=== PATIENT | female | born 1940 | race Caucasian/White ===

== ENCOUNTER 2017-06-15 17:01 | Inpatient (IN) | payer MEDICARE, OTHER ==
[~2017-06-15] VITALS: Ht 156.2 cm; Wt 84.8 kg
--- NOTE | 2017-06-15 19:00 | NUR ---
REPORT RECEIVED AND CARE OF PT ASSUMED. PT LYING IN SUPINE POSITION PROPPED ONTO LEFT SIDE WITH PILLOWS PER TURN SCHEDULE. IV IN LEFT FA PATENT WITH NS INFUSING AT KVO. FERRERA CATHETER PLACED BY DAY SHIFT CATEGORY CONSULTANT. WILL MONITOR CLOSLEY FOR NEEDS.
[2017-06-15 20:00] VITALS: BP 103/51
--- NOTE | 2017-06-15 21:15 | NUR ---
TURNED ONTO BACK PER TURN SCHEDULE.
--- NOTE | 2017-06-15 21:40 | NUR ---
HS MEDICATIONS GIVEN. FSBS 453 THIS CHECK. GAVE 20 UNITS OF HUMALOG AND ORDERED A GLUCOSE LAB.
--- NOTE | 2017-06-15 22:15 | NUR ---
CALLED DR MONTERO TO ADVISE OF PT'S BLOOD SUGAR...480 AT LAB DRAW. RECEIVED ORDER TO CHANGED TO HIGH RESISTANCE SLIDING SCALE AND RE-CHECK IN 1 HOUR.
--- NOTE | 2017-06-15 23:50 | NUR ---
FSBS 357 THIS CHECK. WILL CONTINUE TO MONITOR CLOSELY.
[2017-06-16] VITALS (8 sets, daily range): BP systolic 103–195; BP diastolic 51–125; Ht 156.2 cm; Wt 84.8 kg
--- NOTE | 2017-06-16 00:20 | NUR ---
TURNED ONTO LEFT SIDE PER TURN SCHEDULE.
[2017-06-16] MEDS ORDERED: TENORMIN50 MG PO (01:13)
[2017-06-16] MEDS ORDERED: CHLORTHALIDONE25 MG PO (01:14)
[2017-06-16] MEDS ORDERED: HYDROCODONE-APA1 TAB PO (01:14)
[2017-06-16] MEDS ORDERED: MEDROL DOSE PACK4 MG PO (01:14)
[2017-06-16] MEDS ORDERED: ZYLOPRIM100 MG PO (01:15)
[2017-06-16] MEDS ORDERED: GLUCOPHAGE1000 MG PO (01:15)
--- NOTE | 2017-06-16 02:15 | NUR ---
TURNED ONTO RIGHT SIDE PER TURN SCHEDULE.
--- NOTE | 2017-06-16 02:23 | NUR ---
GAVE MORPHINE 2 MG IVP PER PT REQUEST FOR PAIN. WILL CONTINUE TO MONITOR FOR NEEDS.
--- NOTE | 2017-06-16 07:15 | NUR ---
LYING IN BED,AWAKE AND WITHOUT DISTRESS.CALL LIGHT IN REACH
--- NOTE | 2017-06-16 07:15 | NUR ---
LYING IN BED,WITHOUT DISTRESS.DOOR OPEN
--- NOTE | 2017-06-16 07:30 | NUR ---
SLEEPING, BREATHING EVEN UNLABORED, NO DISTRESS NOTED, CALL LIGHT IN REACH, BED LOWEST POSITION, WILL CONTINUE TO MONITOR
--- NOTE | 2017-06-16 11:00 | HP ---
PATIENT: DARIANA URIAS MEDICAL RECORD: [id number] ACCOUNT: [id number] LOCATION:[id number] : 39 ADMISSION DATE: 06/15/17 HISTORY AND PHYSICAL EXAMINATION DATE OF ADMISSION: 06/15/2017 CHIEF COMPLAINT: Back pain. HISTORY OF PRESENT ILLNESS: This is a 77-year-old female who presents with continued pain in her back. 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 She came in to our clinic that day, was seen and had an x-ray of the lumbar spine that showed good disk space, but there was a possible compression fracture at L1. She was prescribed hydrocodone and a Medrol Dosepak. She states she did get some better, but pain got worse and worse, and she was unable to get out of bed and she states she simply just urinated in the bed. She was not able to get up and eat, and she was eventually brought back in today to the clinic for further evaluation. She was in a wheelchair. She was moaning with most every breath, complaining of pain in her lower back, did not radiate into her legs. She did not have any bowel or bladder dysfunction. After reviewing the x-ray and seeing the patient in such a great pain, I directly admitted her to [facility] for uncontrollable pain and further evaluation. PAST MEDICAL AND SURGICAL HISTORY: She has history of anxiety, depression, diabetes, high cholesterol, hypertension and gout. PAST SURGICAL HISTORY: Cataract extraction, hysterectomy, tubal ligation, section. ALLERGIES: None known. HOME MEDICATIONS: Atenolol 50 mg twice a day; [place] p.r.n. pain; chlorthalidone 25 mg 2 pills in the morning; allopurinol 100 mg daily; tramadol 50 mg p.r.n. pain; buspirone 15 mg twice a day; Zoloft 50 mg once a day; Crestor 10 mg once a day; glimepiride 4 mg once a day; losartan 50 mg twice a day; oxybutynin 5 mg 3 times a day; metformin 1000 mg twice a day. FAMILY HISTORY: Father at 64 of an CO. Mother at 57 in a motor vehicle accident. A sister at 78 of an CO. HABITS: Former smoker. No alcohol or drug use. SOCIAL HISTORY: She is and I believe a grandson lives with her at times. REVIEW OF SYSTEMS: GENERAL: No major weight changes. HEENT: No particular sinus or allergy problems. RESPIRATORY: No emphysema or asthma. CARDIAC: No known history of coronary artery disease. She does have hypertension. GASTROINTESTINAL: She has had occasional dyspepsia. GENITOURINARY: No significant problems there. MUSCULOSKELETAL: Has had some back pain and gout. HISTORY AND PHYSICAL [id number] DARIANA URIAS NEUROLOGIC: No migraines. No seizures. PSYCHIATRIC: She has anxiety and depression. PHYSICAL EXAMINATION: VITAL SIGNS: In my office, blood pressure was 130/60. GENERAL: She was moaning and complaining of pain. HEENT: Grossly within normal limits. NECK: Supple. No JVD or bruit. HEART: Regular rate and rhythm. LUNGS: Clear. ABDOMEN: Soft, nontender. EXTREMITIES: No pitting edema. BACK: No change in color, texture or temperature of the skin. She has tenderness to palpation in the mid upper lumbar spine only in the midline. Straight leg raises are negative. ASSESSMENT: Compression fracture L1 with intractable back pain. PLAN: We will admit for pain control, we will give steroids. She is a diabetic and we will monitor her glucose. We will give IV Robaxin, get an MRI of her lumbar spine and further recommendations as warranted. TRANSINT:[id number] Voice Confirmation ID: [id number] DOCUMENT ID: [id number] ADRIAN VENTURA MD at 1100 CC: [id number] DICTATION DATE: 06/15/171845 MOLDED GOODS INSPECTOR TRIMMER: 06/15/171951 ADM IN [place] [id number] [place] [id number]
--- NOTE | 2017-06-16 12:50 | NUR ---
PAGED DR MONTERO ABOUT BLOOD GLUCOSE 446 28 UNITS OF INSULIN GIVEN, AWAITING FOR CALL BACK
--- NOTE | 2017-06-16 13:20 | NUR ---
DR MONTERO SAID TO COVER AND RECHECK IN 2 HOURS
--- NOTE | 2017-06-16 14:24 | NUR ---
RECHECKED BLOOD GLUCOSE PER ORDER, 472 WAS READING, DR MONTERO PAGED, ORDERS PUSH 10 UNITS IV REGULAR INSULIN AND RECHECK IN 1 HOUR
--- NOTE | 2017-06-16 16:53 | NUR ---
OFF FLOOR FOR MRI
--- NOTE | 2017-06-16 17:40 | NUR ---
PT REC'D FROM MRI. NO VISIBLE SIGNS OF DISTRESS. ADMINISTERED MEDS PER ORDERS. PATIENT DENIES NEEDS AT THIS TIME. BED IN LOWEST POSITION, CALL LIGHT WITHIN REACH, AND BED ALARM ON. ENCOURAGED THE PATIENT TO CALL IF SHE HAS NEEDS.
--- NOTE | 2017-06-16 19:00 | NUR ---
REPORT RECEIVED AND CARE OF PT ASSUMED. PT LYING IN LOW GONZALEZ'S POSITION WATCHING TV. IV IN LEFT FA PATENT WITH NS INFUSING AT 30 (KVO). FERRERA CATHETER DRAINING TO GRAVITY WITH YELLOW URINE IN COLLECTION BAG. WILL MONITOR CLOSLEY FOR NEEDS. CALL LIGHT WITHIN REACH.
--- NOTE | 2017-06-16 20:15 | NUR ---
GAVE MORPHINE 2 MG IVP PER PRN ORDER, PER PT REQUEST FOR LEDESMA AT LEVEL 6/10. WILL MONITOR FOR EFFECTIVENESS.
--- NOTE | 2017-06-16 20:15 | NUR ---
HS MEDICAITONS GIVEN. FSBS 369 THIS CHECK REQUIRING COVERAGE WITH 24 UNITS OF HUMALOG PER SLIDING SCALE.
--- NOTE | 2017-06-16 20:20 | NUR ---
GAVE HS SNACK OF APPLESAUCE AND MACEY CRACKERS.
--- NOTE | 2017-06-16 20:30 | NUR ---
PLACED SCD'S ON PT AND EXPLAINED USE...PT UPSET THAT SHE HAS BLOOD CLOTS. EXPLAINED AT LENGTH THAT THIS WAS A PREVENTATIVE MEASURE.
--- NOTE | 2017-06-16 23:10 | NUR ---
PT RESTING IN MID GONZALEZ'S POSITION TALKING ON THE PHONE. NO NEEDS VOICED.
--- NOTE | 2017-06-17 05:33 | NUR ---
GAVE MORPHINE 2 MG IVP PER PT REQUEST FOR PAIN IN BACK. WILL MONITOR FOR EFFECTIVENESS. CALL LIGHT WITHIN REACH.
[2017-06-17 08:38] VITALS: BP 126/47
--- NOTE | 2017-06-17 08:40 | NUR ---
SHIFT ASSESSMENT COMPLETE. ALERT/VERBAL. ALEKNAGIK. ABLE TO MAKE NEEDS KNOWN. NO COMPLAINTS AT THIS TIME. BED IN LOWEST POSITION. CALL LIGHT IN REACH. WILL CONTINUE TO MONITOR.
[2017-06-17 16:16] VITALS: BP 139/61
--- NOTE | 2017-06-17 19:00 | NUR ---
REPORT RECEIVED AND CARE OF PT ASSUMED. PT LYING IN HIGH GONZALEZ'S POSITION VISITING WITH FAMILY MEMBERS. IV IN LEFT FA PATENT WITH NS INFUSING AT KVO. FERRERA CATHETER DRAINING TO GRAVITY WITH YELLOW URINE IN COLLECTION BAG. WILL MONITOR CLOSELY FOR NEEDS.
[2017-06-17 20:00] VITALS: BP 104/43
--- NOTE | 2017-06-17 20:30 | NUR ---
HS MEDICATIONS GIVEN. HELD TENORMIN DUE TO BLOOP PRESSURE BEING LOW AT 104/43 THIS ASSESSMENT. WILL CONTINUE TO MONITOR FOR NEEDS.
--- NOTE | 2017-06-17 21:00 | NUR ---
RE-POSITIONED PT AND TURNED ONTO RIGHT SIDE PER TURN SCHEDULE.
[2017-06-17 23:47] VITALS: BP 131/75
--- NOTE | 2017-06-18 03:25 | NUR ---
PT MOANING AND REQUESTING PAIN MED. GAVE MORPHINE 2 MG IVP PER PRN ORDERS. WILL MONITOR FOR EFFECTIVENESS.
[2017-06-18 04:01] VITALS: BP 119/44
--- NOTE | 2017-06-18 04:30 | NUR ---
PT RESTING QUIETLY AT THIS TIME WITH UNLABORED BREATHING OR MOANING. SIDE RAILS UP X2 FOR SAFETY.
[2017-06-18 08:44] VITALS: BP 120/54
[2017-06-18 12:40] VITALS: BP 124/60
--- NOTE | 2017-06-18 16:41 | NUR ---
Patient Name: DARIANA URIAS Admission Status: Urgent Accout number: [id number] Admission Date: 06-15-2017 : 1939 Admission Diagnosis: Attending: ADRIAN VENTURA Current LOS: 3 Anticipated DC Date: 06-21-2017 Planned Disposition: Inpatient Rehab Primary Insurance: MEDICARE A & B Discharge Planning Comments: CM MET WITH PATIENT AND SON (ARAM) REGARDING D/C NEEDS AND PLANS. PATIENTS SON STATED HIS BROTHER LIVES WITH THEIR MOM AND HE WILL DRIVE HER HOME. PATIENT HAS 4 STEPS W/RAILS TO ENTER HOME AND NO STAIRS INSIDE. PATIENT IS INDEPENDENT WITH HER CARE AND HAS A WALKER, WHEELCHAIR, AND CANE AT HOME. PATIENTS PCP IS DR. VENTURA AND PAHRMACY IS [facility]. PATIENT IS CURRENT WITH [facility]. CM WILL CONTINUE TO FOLLOW PATIENT WITH D/C NEEDS AND PLANS. PCP DR. [facility]- [phone] ARAM ([facility]) [phone] [facility] ([facility]) [phone] Mix Chemist: Nicole Ortiz Is the patient Alert and Oriented? Yes 0 * How many steps to enter\exit or inside your home? 4 0 * PCP AUDREY 0 * Pharmacy [facility] 0 * Preadmission Environment Home with Family 0 * ADLs Independent 0 * Equipment Cane Glucometer Walker Wheelchair 0 * List name and contact numbers for known caregivers / representatives who currently or will assist patient after discharge: ARAM HUTCHISON ([facility]) [phone] [facility] ([facility]) LIVES WITH MOTHER [phone] * Community resources currently utilized None 0 * Additional services required to return to the preadmission environment? Yes 0 * Can the patient safely return to the preadmission environment? No 0 * Has this patient been hospitalized within the prior 30 days at any hospital? No 0 Grand Total: 0
[2017-06-18 16:56] VITALS: BP 135/43
--- NOTE | 2017-06-18 19:40 | NUR ---
RECIEVED CALL FROM PT SON STATING PT HAD CALLED HIM AND INFORMED HIM SHE WAS BILL OF MATERIALS CLERK LIGHT FOR AN HOUR WILL NO ASSISTANCE, ADVISED I WOULD GO AND CHECK ON PT. PT SITTING UP IN BED IN TEARS STATED DOOR WAS CLOSED, LIGHTS WERE OFF AND SHE HAD TURNED CALL LIGHT ON AN HOUR AGO, REASSURED HER SHE IS SAFE, OFFERED TO LEAVE DOOR OPEN AND CHECK ON HER MORE FREQUENTLY, ATTENDED TO PT NEEDS AND STAYED UNTIL PT CALM. BED IN LOW POSITION, CALL LIGHT IN REACH
[2017-06-18 20:00] VITALS: BP 136/64
--- NOTE | 2017-06-18 20:40 | NUR ---
PT WAS TAKEN FOR CT, DELAYED IV AND DISCONNECTED FROM PT UNTIL RETURNS
--- NOTE | 2017-06-18 21:16 | NUR ---
PT RETURNED FROM CT, RECONNECTED IB, NO OTHER NEEDS VOICED AT THIS TIME
[2017-06-19] VITALS: BP 131/54
--- NOTE | 2017-06-19 02:45 | NUR ---
PT RESTING IN BED WITH NO DISTRESS. SIDE RAILS X 2. BED LOW. BED ALARM ON. CALL LIGHT IN REACH.
--- NOTE | 2017-06-19 08:50 | NUR ---
ASSESSMENT COMPLETE. IV TO L FA PATENT. NS INFUSING AT KVO. ABRASIONS NOTED TO LEFT SIDE OF BODY. FERRERA PATENT DRAINING YELLOW URINE. BISHOP PAIUTE. BED ALARM IN USE. SCD'S IN USE TO BILAT LEGS. COMPLAINING OF BACK PAIN AND TENDERNESS.
[2017-06-19 09:06] VITALS: BP 144/64
--- NOTE | 2017-06-19 10:00 | NUR ---
INJECTION PERFORMED TO LOWER BACK BY DR FRAGOSO. PATIENT TOLERATED PROCEDURE WELL. RESTING QUIETLY ON RIGHT SIDE.
--- NOTE | 2017-06-19 10:49 | NUR ---
RESTING QUIETLY AT THIS TIME. DR PACE BY TO REASSESS PAIN. PATIENT STATES THAT PAIN IS BETTER AT THIS TIME. DENIES ANY NEEDS AT THIS TIME.
--- NOTE | 2017-06-19 11:55 | NUR ---
CONTINUES RESTING ON RIGHT SIDE. DENIES ANY NEEDS AT THIS TIME.
--- NOTE | 2017-06-19 12:05 | NUR ---
MORPHINE GIVEN SLOW IVP FOR COMPLAINT OF BACK PAIN.
[2017-06-19 12:27] VITALS: BP 128/60
--- NOTE | 2017-06-19 15:21 | NUR ---
NUTRITION F/U PT WITH 75% INTAKE ADA DIET. WILL ADD GRAVY TO BREAKFAST MEALS PER PT REQUEST. CONTINUE TO MONITOR PO INTAKE. RD FOLLOWING
--- NOTE | 2017-06-19 15:33 | NUR ---
FANNING AND COMPLAINING OF FEELING HOT. FAN PLACED AT BEDSIDE. DENIES FURTHER NEEDS AT THIS TIME.
[2017-06-19 16:14] VITALS: BP 122/52
--- NOTE | 2017-06-19 19:30 | NUR ---
RECIEVED SHIFT REPORT. PT IS LYING IN BED. ALERT AND ORIENTED AND ABLE TO VERBALIZE NEEDS. IV IS PATENT AND FLUIDS ARE RUNNING PER ORDER. FERRERA IS DRAINING URINE BY GRAVITY. SCD'S ON. PT CAN HELP ASSISTING IN TURNING IN BED FOR COMFORT AND SKIN CARE. PT STATES PAIN IS 5/10. NO NEEDS ARE VERBALIZED AT THIS TIME. WILL CONTINUE TO MONITOR. SIDE RAILS ARE UP X 2. BED IS IN LOWEST POSITION. BED ALARM IS ON FOR SAFETY. CALL LIGHT IS WITHIN REACH.
[2017-06-19 20:00] VITALS: BP 156/61
--- NOTE | 2017-06-19 21:51 | NUR ---
SHIFT ASSESSMENT COMPLETED. NIGHT MEDS GIVEN WITH NO PROBLEMS. PT RECIEVED 20 UNITS INSULIN PER SLIDING SCALE FOR JCCZ=333. SNACK PROVIDED. NO NEEDS ARE VOICED. WILL MONITOR. SIDE RAILS X 2. BED LOW. BED ALARM ON. CALL LIGHT IN REACH.
--- NOTE | 2017-06-20 06:50 | NUR ---
REPORT RECEIVED, ASSUMED CARE OF PT. RESTING, EASILY AROUSED. BED ALARM ON. R FOREARM IV INFUSING ORDERED, DRSG C/D/I. FERRERA CATHETER IN PLACE, SECURED WITH STAT-LOCK, PATENT, DRAINING. SCD'S IN PLACE AND TURNED ON, BILATERALLY. BED IN LOWEST POSITION, SIDE RAILS UP X 2, CALL LIGHT WITHIN REACH.
[2017-06-20 08:43] VITALS: BP 126/72
[2017-06-20 12:59] VITALS: BP 145/61
--- NOTE | 2017-06-20 15:20 | NUR ---
Rehab Prescreening Consult recieved and the chart has been reviewed. She is a good candidate for IRF, but has not had a PT eval to determine her functional needs. Discussed with the CM Nicole Contreras RN. Rehab will follow. Flora Jones RN Clinical Liaison, Rehab
[2017-06-20 17:46] VITALS: BP 146/63
--- NOTE | 2017-06-20 19:20 | NUR ---
RECIEVED SHIFT REPORT. PT IS LYING IN BED. ALERT AND ORIENTED AND ABLE TO VERBALIZE NEEDS. IV IS PATENT AND FLUIDS ARE RUNNING PER ORDER. FERRERA IS DRAINING URINE BY GRAVITY. SCD'S ON. PT REQUIRES SOME ASSISTANCE TURNING IN BED FOR COMFORT AND SKIN CARE. PT HAS BEEN WORKING WITH PHYSICAL THERAPY. PT STATES PAIN IS 5/10. NO NEEDS ARE VERBALIZED AT THIS TIME. WILL CONTINUE TO MONITOR. SIDE RAILS ARE UP X 2. BED IS IN LOWEST POSITION. BED ALARM IS ON FOR SAFETY. CALL LIGHT IS WITHIN REACH.
[2017-06-20 20:00] VITALS: BP 113/60
--- NOTE | 2017-06-20 20:47 | NUR ---
SHIFT ASSESSMENT COMPLETED. NIGHT MEDS GIVEN WITH NO PROBLEMS. PT RECIEVED 12 UNITS INSULIN PER SLIDING SCALE FOR [id number]. SNACK PROVIDED. NO NEEDS ARE VOICED. WILL MONITOR. SIDE RAILS X 2. BED LOW. BED ALARM ON. CALL LIGHT IN REACH.
[2017-06-21] VITALS: BP 117/51
[2017-06-21 04:00] VITALS: BP 122/66
[2017-06-21 08:03] VITALS: BP 134/96
--- NOTE | 2017-06-21 09:30 | NUR ---
ASSESSMENT COMPLETE, VS STABLE. PATIENT UPSET BC SHE SAID THAT THE PICKER BOX OPERATOR HURT HER THIS AM WHEN SHE WAS CLEANING HER UP. STATED THE PICKER BOX OPERATOR PUT HER "FINGER UP HER BUTT". EXPLAINED TO PATIENT THAT SHE MIGHT HAVE HURT HER TRYING TO WIPE HER BUT THAT I WOULD LET THE NURSE LINOLEUM FLOOR INSTALLER KNOW. VERBALIZED UNDERSTANDING. ANDERS EXPLAINED THAT SHE WAS COMPLAINING THAT SHE WAS HURTING HER AT THIS TIME BUT THAT THE PATIENT HAD ALOT OF BM ON HER AND SHE HAD TO WIPE IT OFF. SHE STATED WHILE SHE WAS CLEANING HER SHE DID APOLOGIZE. ANDERS ORR WAS IN WITH ANDERS AND AGREED WITH WHAT ANDERS WAS SAYING. PATIENT HAS NO OTHER COMPLAINTS AT THIS TIME. CALL LIGHT WITHIN REACH.
[2017-06-21 12:08] VITALS: BP 188/73
--- NOTE | 2017-06-21 12:30 | NUR ---
PATIENT UP IN CHAIR WITH IV INTACT. NO COMPLAINTS AT THIS TIME. CALL LIGHT WITHIN REACH.
--- NOTE | 2017-06-21 14:24 | NUR ---
CM REASSESSMENT NOTE: PATIENT IS D/C TO IP REHAB TODAY. FAMILY AWARE.
--- NOTE | 2017-06-21 14:24 | NUR ---
Rehab Note- Visited with the paient, also Dr Boateng was in the patient's room. Discussed acute inpatient rehab withthe patient. She is very interested and stated that she is very willing to try because she has got to get up out of the bed where that she can return home at her PLOF with this recent fall. Thank you for this referral! Dee Burnett RN Clinical Liaison, [facility] Rehab
--- NOTE | 2017-06-21 14:25 | NUR ---
REHAB PRESCREENING PT evaluation complete with evidence for rehab need. I will begin her paper screen and submit to PD and MD for approvals. Once approved she will be ready for admission to rehab when her physician feels she is appropriate to discharge. Thank you for this referral! Kayla Rivas, MOTION PICTURE SET UP WORKER Rehab Banking Specialist
--- NOTE | 2017-06-21 15:00 | NUR ---
PATIENT IN BED WITH IV INTACT. NO COMPLAINTS AT THIS TIME. FERRERA INTACT. CALL LIGHT WITHIN REACH.
[2017-06-21] MEDS ORDERED: ROBAXIN-750750 MG PO (17:43)
[2017-06-21] MEDS ORDERED: LANTUS SOL100 UNIT/1 SC (17:44)
[2017-06-21] MEDS ORDERED: HUMALOG 30100 UNITS/ SC (17:45)
--- NOTE | 2017-06-21 18:55 | NUR ---
PATIENT IN BED WITH NO COMPLAINTS AT THIS TIME. REPORT GIVEN TO ROSENDO MELO. PATIENT GOING TO GO TO REHAB. CALL LIGHT WITHIN REACH.
== END 2017-06-21 20:08 | DRG 552 ==
LOC: D.MS 17:01
PROVIDERS: ADMIT Family Medicine
DX: S32.018A Other fracture of first lumbar vertebra, initial encounter for closed fracture (principal); S32.19XA Other fracture of sacrum, initial encounter for closed fracture; W06.XXXA Fall from bed, initial encounter; I10 Essential (primary) hypertension; E11.9 Type 2 diabetes mellitus without complications

== ENCOUNTER 2017-06-21 19:55 | Inpatient (IN) | payer MEDICARE, OTHER ==
[~2017-06-21 19:55] MED LIST: CHLORTHALIDONE25 MG PO; GLUCOPHAGE1000 MG PO; HUMALOG 30100 UNITS/ SC; HYDROCODONE-APA1 TAB PO; LANTUS SOL100 UNIT/1 SC; MEDROL DOSE PACK4 MG PO; ROBAXIN-750750 MG PO; TENORMIN50 MG PO; ZYLOPRIM100 MG PO
--- NOTE | 2017-06-21 20:11 | NUR ---
RECIEVED FROM MED SURG AT 1954. BROUGHT IN ON A BED AND ASSISTED BY 2 STAFF. MD NOTIFIED AND ALL MEDS VERIFIED. F/C PATENT AND DRAINING CLEAR YELLOW URINE TO BED SIDE DRAINAGE SYSTEM. SKIN DRY AND INTACT. HOB ELEVATED. RESP. EVEN AND UNLABORED WITH LUNG SOUNDS CLEAR BILATERALLY. [id number]. ABD NONTENDER. NO EDEMA OBSERVED. PEDAL PULSES STRONG BILAT..DENIES ANY PAIN AT THIS TIME. CALL LIGHT AND OVERBED TABLE IN REACH.
--- NOTE | 2017-06-21 21:44 | NUR ---
LAYING IN BED WITH EYES OPEN AND TV ON. BECOMES AGITATED EASILY WHEN ASKED QUESTIONS. EXPLAINED IT WAS FOR HER ASSESSMENT. STATES " WHY DO THEY WANT TO KNOW ALL THAT INFORMATION". CONTINUED TO EXPLAIN THAT WE NEEDED TO BE ABLE TO CONTACT SOMEONE IN CASE OF EMERGENCY. AND WHEN IT GETS TIME FOR HER TO GO HOME, WE WOULD NEED TO KNOW WHO TO CONTACT. WHEN LEAVING THE ROOM OVERHEARD HER TELL THE AIDE " THEY DON'T NEED TO KNOW ALL OF THAT". CALL LIGHT AND OVERBED TABLE IN REACH.
[2017-06-21 21:58] VITALS: BP 151/109; BMI 35.3
[2017-06-21 22:56] VITALS: BP 151/109
--- NOTE | 2017-06-22 00:41 | NUR ---
RESTINGIN BED WITH EYES CLOSED AND TV ON. NO S/S OF DISTRESS OBSERVED. CALL LIGHT AND OVERBED TABLE IN REACH.
--- NOTE | 2017-06-22 04:24 | NUR ---
RESTING IN BE[place] EYES CLOSED. NO S/S OF DISTRESS OBSERVED. CALL LIGHT AND OVERBED TABLE IN REACH.
[2017-06-22 05:16] LABS: BASOPHILS 0 % (0-2); EOSINOPHILS 0.6 % (0-7); HEMATOCRIT 39.3 % (36.0-48.0); HEMOGLOBIN 12.2 g/dL (12-16); IMMATURE GRANULOCYTES 0.7 % (0-5); LYMPHOCYTES 20.3 % (15-50); MCH 24.4 pg (26.0-34.0); MCV 78.6 fL (80.0-100.0); MEAN PLATELET VOLUME 9.6 fL (7.4-10.4); MONOCYTES 10.7 % (2-11); NEUTROPHILS 67.7 % (40-80); RDW 15.7 % (11.5-14.5); WBC 8.4 10x3/uL (4.8-10.8)
[2017-06-22 05:22] LABS: PLATELET COUNT 264 10x3/uL (130-400)
[2017-06-22 06:32] LABS: ANION GAP 16.2 mmol/L (8-16); CALCIUM 8.4 mg/dL (8.5-10.1); CARBON DIOXIDE 26.9 mmol/L (21.0-32.0); CREATININE - SERUM 0.8 mg/dL (0.6-1.3); POTASSIUM - SERUM 4.1 mmol/L (3.5-5.1)
[2017-06-22 11:27] VITALS: BMI 35.3
[2017-06-22 16:26] VITALS: BP 118/85
--- NOTE | 2017-06-22 16:32 | RHP ---
PATIENT: DARIANA URIAS MEDICAL RECORD: [id number] ACCOUNT: [id number] LOCATION:[facility]1118 : 39 ADMISSION DATE: 06/21/17 REHABILITATION HISTORY AND PHYSICAL EXAMINATION POST ADMISSION PHYSICIAN EXAMINATION DATE OF ADMISSION: 06/21/2017 ADMITTING DIAGNOSES: Compression fracture of L1 with intractable back pain. HISTORY OF PRESENT ILLNESS: The patient was admitted to the inpatient rehab secondary to pain syndrome. She has an L1 vertebral compression fracture, sacral insufficiency and insufficiency fracture of the pelvis causing intractable pain. She is a 77-year-old female patient of Dr. Fernandez. She apparently rolled out of bed early on the morning of June 07 and had acute onset of low back pain. At that time, she went to Dr. Boateng's clinic, was seen and had an x-ray of the lumbar spine that showed good disc space, but there is possible compression fracture. She was prescribed hydrocodone and a Medrol Dosepak. She states that she did get some better, but the pain got worse and worse. She was unable to get out of bed, states simply she just urinated in bed. She is unable to get up and eat. She was eventually brought back on June 15 to the clinic for further evaluation. She was in a wheelchair. She was moaning with every breath, complaining of back pain that did not radiate into her leg. She did not have any bowel or bladder dysfunction at that time. After reviewing the x-rays and seeing the patient in such great pain, she was admitted for uncontrollable pain and further evaluation. She was admitted to the hospital for pain control and steroids. She is a diabetic and needs glucose monitoring. She was previously independent with ADLs and ambulation, and was living on her own. She is requiring pain management as it impacts her functional abilities and requires physician and team involvement with her back pain interventions. Her current functional level is max assist with ambulation and moderate to max assist with ADLs. She will also require intense PT and OT in order to return back to her prior level of functioning. COMORBIDITIES: In this patient include intractable back pain, sacral insufficiency, diabetes, anxiety, depression, hyperlipidemia and a history of gout. PAST MEDICAL HISTORY: Significant for anxiety, depression, hyperlipidemia, hypertension, gout and diabetes. PAST SURGICAL HISTORY: Includes cataract extraction, hysterectomy, tubal ligation and . ALLERGIES: No known drug allergies. CURRENT MEDICATIONS: Include metformin 1000 mg b.i.d. with meals. She is on Lantus 10 units daily, chlorthalidone 50 mg daily, allopurinol 100 mg daily. She is on a glucose replacement protocol. Robaxin 750 mg t.i.d., high resistant insulin sliding scale, Lockney 10/325 as needed for pain, and atenolol 50 mg b.i.d. HABITS: No alcohol or tobacco use. FAMILY HISTORY: Noncontributory. HISTORY AND PHYSICAL [id number] DARIANA URIAS SOCIAL HISTORY: The patient wants to return back home and get back to her prior level of functioning. REVIEW OF SYSTEMS: GENERAL: Denies weakness or fatigue. HEENT: Denies cold, cough or congestion. CARDIOVASCULAR: Denies chest pain. PHYSICAL EXAMINATION: VITAL SIGNS: Stable, afebrile. GENERAL: A somewhat anxious and upset female, who is in no acute distress. HEENT: Normocephalic and atraumatic. Mucosa moist. NECK: Supple. No lymphadenopathy. LUNGS: Clear at this time. HEART: Regular rate and rhythm. ABDOMEN: Benign. EXTREMITIES: No clubbing, cyanosis or edema. NEUROLOGIC: Seems intact, but when talking with her, she is definitely hard of hearing. LABORATORY DATA: Her white count is 8.4, H&H of 12 and 39, and platelet count was noted to be 264. Her sodium is 142, potassium 4.1, BUN and creatinine 26 and 0.8 and blood sugar is noted to be 170. ASSESSMENT: This is a 77-year-old female patient admitted to the rehab with a working diagnosis of compression fracture at L1, which is definitely affecting her ability to perform ADLs. The patient has potential to make improvement. We instituted the following multidisciplinary therapies including, but not limited to physical, occupational, respiratory, speech, nutritional services, prosthetics and orthotics. Given her complex condition and risk for more complications, rehabilitation services cannot be provided at a lower level of care such as a shelter facility. PLAN: 1. Admit to [facility] rehab for intensive inpatient therapy to include the following disciplines: A. Physical therapy to improve gait, all transfer skills and bed mobility to a modified independent level. B. Occupational therapy to improve activities of daily living to a modified independent level. C. Case management to assist with discharge planning and placement options. D. Nutrition to assist with nutritional needs. E. Rehabilitation nursing to assist in monitoring the patient underlying medical conditions and to assist with any type of bowel or bladder management. 2. The patient's current medications and medical care will be continued. 3. The patient will be placed on standard fall precautions. 4. We will get with case management. I am not sure if she is going to remain here for an extended period of time secondary to her current attitude. 5. We will discuss this patient during care team staff meeting this week. TRANSINT:[id number] Voice Confirmation ID: [id number] DOCUMENT ID: [id number] GAMALIEL notes whether there has been none or any medical/functional HISTORY AND PHYSICAL [id number] DARIANA URIAS change since admission: - GAMALIEL attests patient continues to be appropriate for IRF: - BINTA OLIVEIRA MD at 1632 CC: [id number] DICTATION DATE: 06/22/17 0850 DIRECTOR OF PUPIL PERSONNEL PROGRAM: 06/22/17 0930 ADM IN [facility] [address] [place] [address]
[2017-06-22 18:15] VITALS: BP 133/53
--- NOTE | 2017-06-22 19:07 | NUR ---
RESTING IN BED WITH EYES CLOSED. NO S/S OF DISTRESS OBSERVED. HOB ELEVATED. LAYING ON HER LEFT SIDE AT THIS TIME. CALL LIGHT AND OVERBED TABLE IN REACH.
[2017-06-22 19:38] VITALS: BP 133/53
--- NOTE | 2017-06-22 21:19 | NUR ---
RESTING IN BE [place] EYES CLOSED. NO S/S OF DISTRESS OBSERVED. CALL LIGHT AND OVERBED TABLE IN REACH.
--- NOTE | 2017-06-23 00:29 | NUR ---
RESTING IN BE[place] EYES CLOSED. NO S/S OF DISTRESS OBSERVED. CALL LIGHT AND OVERBED TABLE IN REACH.
--- NOTE | 2017-06-23 03:27 | NUR ---
RESTINGIN BED WITH EYES CLOSED. NO S/S OF DISTRESS OBSERVED. CALL LIGT AND OVERBED TABLE IN REACH.
[2017-06-23 08:00] VITALS: BP 186/85
--- NOTE | 2017-06-23 08:00 | NUR ---
SHIFT ASSMT COMPLETED.BREAKFAST TRAY GIVEN.BLADDER TRAINING STARTED.FC PATENT.
--- NOTE | 2017-06-23 12:00 | NUR ---
LUNCH TRAY GIVEN.DENIES NEEDS.
--- NOTE | 2017-06-23 19:50 | NUR ---
PT. IN BED WITH HOB UP FOR COMFORT. SCD'S PLACED ON BLE'S. PT. REMINDED ME THAT SHE WILL NEED SOME JELLO TO TAKE HER MEDS WITH SO THAT SHE DOESN'T BECOME ILL. ASSESSMENT COMPLETED. NO VOICED NEEDS AT THIS TIME AND HER CALL LIGHT IS WITHIN REACH.
[2017-06-23 20:15] VITALS: BP 161/75
--- NOTE | 2017-06-23 23:19 | NUR ---
PT. IN BED WITH HOB UP FOR COMFORT. FERRERA TO BSD AND BLADDER TRAINING CONTINUES. SCD'S TO BLE'S IN PLACE WITHOUT ANY ALARMS. PT. AWAKE AND CONTINUES TO WATCH TV WITHOUT ANY VOICED NEEDS.
--- NOTE | 2017-06-24 03:10 | NUR ---
PT. IN BED WITH HOB UP FOR COMFORT WITH EYES CLOSED AND RESP. EVEN. SCD'S ON BLE'S WITHOUT ANY ALARMS AND HER CALL LIGHT IS WITHIN REACH. FERRERA TO BSD AND BLADDER TRAINING CONTINUES.
--- NOTE | 2017-06-24 03:40 | NUR ---
RESPONDED TO PATIENT SHOUTING FOR HELP. FOUND HER ATTEMPTING TO EXIT THE BED. SAID, "I HAVE TO PEE!" UNCLAPMED HER CATHETER LINE AND INFORMED HER I DID SO AND THAT HER URINE IS NOW DRAINING TO THE BEDSIDE BAG. PATIENT SAID SHE HAS BEEN CALLING FOR AN HOUR BECAUSE HER CALL LIGHT DOES NOT WORK. DEMONSTRATED THAT SHE HAD TRIED TO USE THE CONTROLS ON HER BEDSIDE TO CALL FOR ASSIST. I REMINDED HER THAT HER CALL LIGHT CONTROL IS IN HER LAP AND HOWED IT TO HER. SHE INSISTS THAT IT DOES NOT WORK. I PRESSED THE NURSE CALL BUTTON AND IT IMMEDIATELY LIT UP THE INDICATOR LIGHT AT THE [facility] AND I COULD HEAR IT SOUDING AT THE CONSOLE A THE NURSES' STATION. INFORMED HER THAT HER CALL LIGHT CONTROL IS WORKING FINE. PATIENT PERSEVERATING ON THE IDEA THAT IT DOES NOT WORK AND THAT SHE HAS BEEN LEFT CALLING OUT FOR ASSISTANCE. SHE IS BEING VERY CONTRARY IN THE FACE OF REALITY. SHE IS VERY [place] AND I HAD TO REPEAT MYSELF MULTIPLE TIMES SHE CONTINUED TO ARGUE. TOLD HER I WILL LET THE CATHETER DRAIN FOR ABOUT 15 TO 20 MINUTES AND THEN COME BACK AND RECLAMP IT.
--- NOTE | 2017-06-24 04:05 | NUR ---
RETURNED TO ROOM. WAS GOING TO BLADDER SCAN PATIENT FOR RESIDUAL URINE IN BLADDER, BUT FOUND THE BATTERY DISCHARGED. PATIENT CONTINUES TO INSIST THAT NO ONE HAS BEEN SEEING HER AND TAKING CARE OF HER TONIGHT, GOING SO FAR TO SAYS SHE HAS BEEN MISTREATED. SHOWED HER THE ROUNDING SHEET ON HER DOOR TO ILLUSTRATE THAT HER NURSE, LEILA RN HAS BEEN ROUNDING ON HER REGULARLY AND DESPITE THIS, PATIENT DENIED IT. NURSE LISA IS CURRENTLY ON A LUNCH BREAK, BUT I REPORTED THIS TO HER AND SHE WAS SHOCKED WITH THE PATIENT'S STATEMENT AND ATTITUDE. WILL BLADDER SCAN THE PATIENT WHEN BATTERY IS SUFFICIENTLY CHARGED.
--- NOTE | 2017-06-24 06:20 | NUR ---
BLADDER SCANNED PT. AFTER UNCLAMPING FERRERA TO MAKE SURE BLADDER WAS EMPTYING COMPLETELY PT. HAD BEEN C/O PAIN IN BLADDER AREA. REASSURED PT. THAT THE CATHETER IS WORKING PROPERLY. PT. STARTED TALKING ABOUT HER CALL LIGHT CONTROLLER WASN'T MAKING HER BED WORK RIGHT. RE-ORIENTED PT. AGAIN TO THE FUNCTIONS ON THE CALL LIGHT CONTROLLER AND WHERE THE BUTTONS WERE ON EITHER SIDE OF HER SIDE RAILS THAT CONTROL HER BED MOVEMENTS. PT. STATED SHE UNDERSTOOD THE FUNCTIONS OF BOTH AND HER CALL LIGHT WAS WITHIN REACH I LEFT ROOM.
[2017-06-24 08:00] VITALS: BP 166/72
--- NOTE | 2017-06-24 08:00 | NUR ---
SHIFT ASSMT COMPLETED.FC CLAMPED AND RELEASED TO DRAIN.CLEAR YELLOW URINE NOTED.Q2H BLADDER TRAINING CONTINUES.BREAKFAST GIVEN.CL IN REACH.
--- NOTE | 2017-06-24 12:00 | NUR ---
EATING LUNCH.VISITING WITH FAMILY.CL IN REACH.
--- NOTE | 2017-06-24 16:00 | NUR ---
RESTING QUIETLY.CL IN REACH.
--- NOTE | 2017-06-24 19:40 | NUR ---
PT. IN BED WITH HOB UP FOR COMFORT WITH EYES CLOSED. PT. AWAKENS EASILY WHEN SPOKEN TO HER. SCD'D PLACED TO BLE'S AND TURNED ON. ASSESSMENT COMPLETED. BLADDER TRAINING CONTINUES AND PT. AWARE CATHETER WILL BE REMOVED IN THE MORNING. CALL LIGHT WITHIN REACH.
[2017-06-24 20:20] VITALS: BP 136/61
--- NOTE | 2017-06-24 23:20 | NUR ---
PT. IN BED LYING ON HER LEFT SIDE. EYES CLOSED, RESP. EVEN. SCD'S TO BLE'S ON AND WITHOUT ALARMS, FERRERA TO BSD AND BLADDER TRAINING CONTINUES. CALL LIGHT REMAINS WITHIN REACH.
--- NOTE | 2017-06-25 03:10 | NUR ---
PT. IN BED WITH HOB UP FOR COMFORT WITH EYES CLOSED AND RESP. EVEN. SCD'S TO BLE'S REMAIN ON WITHOUT ANY ALARMS. FERRERA TO BSD AND BLADDER TRAINING CONTINUES. CALL LIGHT WITHIN REACH.
--- NOTE | 2017-06-25 05:30 | NUR ---
REMOVED FERRERA CATHETER WITH TIP INTACT AND PT. TOLERATED PROCEDURE WITHOUT COMPLAINTS. CLEANED PT. UP, CHANGED LINENS, AND PLACED NEW BRIEF. PT. HAPPY TO KNOW CATHETER WAS OUT AND SHE DIDN'T EVEN FEEL IT BEING REMOVED. CALL LIGHT LEFT IN HER HANDS UPON LEAVING ROOM.
[2017-06-25 05:50] LABS: BASOPHILS 0.2 % (0-2); EOSINOPHILS 1.7 % (0-7); HEMATOCRIT 40.3 % (36.0-48.0); HEMOGLOBIN 12.4 g/dL (12-16); IMMATURE GRANULOCYTES 0.6 % (0-5); MCH 24.4 pg (26.0-34.0); MCHC 30.8 g/dL (31.0-37.0); MCV 79.2 fL (80.0-100.0); MEAN PLATELET VOLUME 9.5 fL (7.4-10.4); MONOCYTES 13.4 % (2-11); NEUTROPHILS 61.1 % (40-80); PLATELET COUNT 248 10x3/uL (130-400); RBC 5.09 10x6/uL (4.00-5.40); RDW 15.9 % (11.5-14.5); WBC 6.6 10x3/uL (4.8-10.8)
[2017-06-25 06:07] LABS: CALC OSMOLALITY 286 mosm/kg (275-300); CARBON DIOXIDE 30.5 mmol/L (21.0-32.0); CHLORIDE - SERUM 101 mmol/L (98-107); CREATININE - SERUM 0.7 mg/dL (0.6-1.3); GLUCOSE 181 mg/dL (74-106); SODIUM 138 mmol/L (136-145); UREA NITROGEN 28 mg/dL (7-18); eGFR NON AFRICAN AMERICAN 86 mL/min (90-120)
--- NOTE | 2017-06-25 07:59 | NUR ---
SITTING UP EATING BREAKFAST. BED IN LOWEST POSITION. CALL LIGHT IN REACH.
[2017-06-25 09:14] VITALS: BP 122/55
--- NOTE | 2017-06-25 11:06 | NUR ---
Nutrition Follow Up: Pt is eating 88% meal avg on a diabetic diet. No BM since admit. Labs and meds reviewed. Rec continue current diet. RD following.
--- NOTE | 2017-06-25 12:18 | NUR ---
RESTING ON RIGHT SIDE IN HER BED. PAIN MEDS GIVEN REQUESTED. CALL LIGHT IN REACH
--- NOTE | 2017-06-25 17:00 | NUR ---
RESTING QUIETLY IN BED. NO S/S PAIN. RESP EVEN AND NON LABORED. HAS C/O LOW BACK PAIN TODAY. MOD ASST TO TRANSFER FROM BED TO W/C AND BACK. PAIN MEDS AND MUSCLE RELAXORS SEEM TO BE EFFECTIVE.
--- NOTE | 2017-06-25 17:46 | NUR ---
TRANSFER TO W/C WITH MOD ASST TO USE BATHROOM. PAIN MEDS EFFECTIVE IN CONTROLLING PAIN.
--- NOTE | 2017-06-25 19:05 | NUR ---
RECIEVED UP IN BED WITH EYES CLOSED. HOB ELEVATED. NO S/S OF DISTRESS OBSERVED. CALL LIGHT AND OVERBED TABLE IN REACH.
[2017-06-25 19:41] VITALS: BP 126/72
[2017-06-26 08:37] VITALS: BP 105/59
--- NOTE | 2017-06-26 10:54 | NUR ---
PATIENT ADMITTED TO REHAB FROM ACUTE FLOOR. DR. VENTURA IS HER PCP. DEM AT HOME: WALKER, WHEELCHAIR AND A CANE. [facility] IS HER PHARMACY OF CHOICE. SHE IS A CLIENT OF [facility]. WILL CONTINUE TO FOLLOW WITH PATIENT . DISCHARGE PLANS ARE FOR HER TO RETURN HOME
[2017-06-26 20:33] VITALS: BP 127/82
--- NOTE | 2017-06-26 22:37 | NUR ---
RECIEVED RESTING IN BED WITH EYES CLOSED. NO S/S OF DISTRESS OBSERVED. CALL LIGHT IN REACH.
--- NOTE | 2017-06-27 02:29 | NUR ---
RESTING IN BED WITH EYES CLOSED. NO S/S OF DISTRESS OBSERVED. HOB ELEVATED PER PT PREFRENCE. CONTINENT OF B/B. USES CALL LIGHT FOR ASSIST. CALL LIGHT AND OVERBED TABLE IN REACH.
--- NOTE | 2017-06-27 08:00 | NUR ---
SHIFT ASSMT COMPLETED.DENIES NEEDS.
[2017-06-27 08:16] VITALS: BP 158/73
--- NOTE | 2017-06-27 12:00 | NUR ---
EATING LUNCH.DENIES NEEDS.
--- NOTE | 2017-06-27 16:00 | NUR ---
RESTING QUIETLY.CL IN REACH.
--- NOTE | 2017-06-27 17:54 | NUR ---
CARE TEAM MEETING: TENATIVE DISCHARGE DATE IS 07/05/17, SON ATTENDED MEETING. PATIENT TO DISCHARGE HOME
--- NOTE | 2017-06-27 19:07 | NUR ---
RESTING IN BED WITH EYES CLOSED AT THIS TIME.
[2017-06-27 19:35] VITALS: BP 127/70
--- NOTE | 2017-06-27 20:28 | NUR ---
UP IN BED WITH EYES OPEN AND TV ON. PLEASANT AND COOPERATIVE. DENIES ANY PAIN. CONT TO BE VERY HARD OF HEARING AND DOES'NT WEAR HEARING DEVICE. CALL LIGHT AND OVER BED TABLE IN REACH.
--- NOTE | 2017-06-27 22:56 | NUR ---
RECIEVED UP IN BED WITH HOB ELEVATED EYES CLOSED AND TV ON. NO S/S OPF DISTRESS OBSERVED. CALL LIGHT AND OVERBED TABLE IN [facility].
--- NOTE | 2017-06-28 04:01 | NUR ---
ASSISTED TO TOILET WITH MAX ASSIST IN W/C. ABLE TO TRANSFER SELF AND PULL BRIEF UP AND DOWN. CALL LIGHT AND OVERBED TABLE IN REACH.
--- NOTE | 2017-06-28 06:09 | NUR ---
RESTING IN BED WITH EYES CLOSED. EASILY AROUSES WITH VERBAL STIMULI. DENIES ANY PAIN AND A LITTLE LETHARGIC. KEEPS TV ON AT NIGHT. CALL LIGHT AND OVERBED TABLE IN REACH.
--- NOTE | 2017-06-28 08:00 | NUR ---
SHIFT ASSMT COMPLETED.
[2017-06-28 08:53] VITALS: BP 189/66
--- NOTE | 2017-06-28 12:00 | NUR ---
EATING LUNCH.CL IN REACH.
--- NOTE | 2017-06-28 20:06 | NUR ---
PT. IN BED WITH HOB UP FOR COMFORT AND IS WATCHING TV. NO VOICED NEEDS AT THIS TIME AND HER CALL LIGHT IS WITHIN REACH.
--- NOTE | 2017-06-28 20:30 | NUR ---
ASSISTED PT TO BATHROOM ANDBACK TO BED.
--- NOTE | 2017-06-28 21:35 | NUR ---
BED TIME SNACK GIVEN, APPLESAUCE AND GRAHAMS CRACKERS.
[2017-06-29 00:10] VITALS: BP 128/59
--- NOTE | 2017-06-29 04:10 | NUR ---
ASSISTED PT TO BATHROOM AND BACK TO BED.
[2017-06-29 06:00] LABS: BASOPHILS 0.2 % (0-2); EOSINOPHILS 2.2 % (0-7); HEMATOCRIT 38.4 % (36.0-48.0); HEMOGLOBIN 11.6 g/dL (12-16); IMMATURE GRANULOCYTES 0.2 % (0-5); LYMPHOCYTES 31.7 % (15-50); MCH 24.3 pg (26.0-34.0); MCHC 30.2 g/dL (31.0-37.0); MCV 80.5 fL (80.0-100.0); MEAN PLATELET VOLUME 9.6 fL (7.4-10.4); NEUTROPHILS 51.7 % (40-80); PLATELET COUNT 227 10x3/uL (130-400); RBC 4.77 10x6/uL (4.00-5.40); RDW 16.1 % (11.5-14.5); WBC 4.5 10x3/uL (4.8-10.8)
[2017-06-29 06:18] LABS: ANION GAP 10.3 mmol/L (8-16); CALCIUM 8.7 mg/dL (8.5-10.1); CARBON DIOXIDE 31.3 mmol/L (21.0-32.0); CREATININE - SERUM 0.8 mg/dL (0.6-1.3); POTASSIUM - SERUM 3.6 mmol/L (3.5-5.1)
--- NOTE | 2017-06-29 07:43 | NUR ---
RESTING QUIETLY IN BED. CALL LIGHT IN REACH. BED IN LOWEST POSITION.
[2017-06-29 08:22] VITALS: BP 217/62
--- NOTE | 2017-06-29 12:46 | NUR ---
SITTING UP IN BED EATING LUNCH. DENIES NEEDS OR PAIN. URGE INCONT NOTED. CALL LIGHT IN REACH
--- NOTE | 2017-06-29 19:40 | NUR ---
ASSISTED PT TO BATHROOM AND BACK TO BED.
--- NOTE | 2017-06-29 20:10 | NUR ---
ASSISTED PT TO BATHROOM AND BACK TO THE BED.
--- NOTE | 2017-06-29 22:05 | NUR ---
PT C/O GO TO BATHROOM TOO REQUENTLY, STATES:" MAY BE I HAVE BLADDER INFECTION." WILL TALK TO CHARGE NURSE, DOCTOR.
--- NOTE | 2017-06-30 02:10 | NUR ---
RESTING IN BED, EYES CLOSED.
[2017-06-30 02:47] VITALS: BP 140/66
--- NOTE | 2017-06-30 03:51 | NUR ---
REST IN BED, EYE CLOSE, CALL LIGHT IN REACH.
[2017-06-30 09:06] VITALS: BP 187/56
--- NOTE | 2017-06-30 19:52 | NUR ---
ASSISTED PT TO BATHROOM AND BACK TO BED.
--- NOTE | 2017-06-30 23:17 | NUR ---
ASSISTED PT TO BATHROOM AND BACK TO BED.
--- NOTE | 2017-06-30 23:25 | NUR ---
IN BED, EYES CLOSED. NO DISTRESS APPARENT.
[2017-06-30 23:58] VITALS: BP 144/66
--- NOTE | 2017-07-01 01:43 | NUR ---
ASSISTED PT TO BATHROOM AND BACK TO BED.
--- NOTE | 2017-07-01 06:15 | NUR ---
ASSISTED PT TO BATHROOM AND BACK TO BED.
--- NOTE | 2017-07-01 07:28 | NUR ---
Assisted to restroom with minimal assist. oriented to call light in restroom. denies any other needs or pain. will continue to monitor
[2017-07-01 08:08] VITALS: BP 186/80
--- NOTE | 2017-07-01 13:30 | NUR ---
SITTING UP IN BED WATCHING TV. DENIES ANY NEEDS. CALL LIGHT WITHIN REACH, BED ALARM ON, BED LOW, SR X3. WILL CONTINUE TO MONITOR
--- NOTE | 2017-07-01 17:47 | NUR ---
SITTING UP IN BED WATCHING TV. DENIES ANY NEEDS. CALL LIGHT WITHIN REACH, BED ALARM ON, SR X3, BED LOW. WILL CONTINUE TO MONITOR
[2017-07-01 19:00] VITALS: BP 176/65
--- NOTE | 2017-07-01 19:35 | NUR ---
PT IN BED WITH HOB UP FOR COMFORT. WATCHING TV. FSBS ACHS. NO O2. NO IV. MIN. ASSIST. WC. STRESS INCONTINENCE. BED ALARM ON. BED IN LOWEST POSITION AND CALL LIGHT WITHIN REACH.
--- NOTE | 2017-07-01 23:30 | NUR ---
PT IN BED WITH HOB UP FOR COMFORT. EYES CLOSED. CHEST RISING AND FALLING. BED IN LOWEST POSITION AND CALL LIGHT WITHIN REACH.
--- NOTE | 2017-07-02 00:35 | NUR ---
RESTING IN BED, EYES CLOSED. NO DISTRESS EVIDENT.
--- NOTE | 2017-07-02 04:30 | NUR ---
PT LYING IN BED WITH HOB UP FOR COMFORT. EYES CLOSED. RESP. EVEN. JANIA ALARM ON. BED IN LOWEST POSITION AND CALL LIGHT WITHIN REACH.
--- NOTE | 2017-07-02 08:04 | NUR ---
SITTING UP IN BED. DENIES INCREASED PAIN OR SOB. MIN ASST TO GET UP FROM BED TO W/C
[2017-07-02 09:00] VITALS: BP 136/61
--- NOTE | 2017-07-02 13:42 | NUR ---
Nutrition Follow Up: Pt stated that her appetite is good. Pt is eating 83% meal avg on a diabetic diet. +BM 07/01/17. Labs reviewed - Glucose elevated. Meds noted. Rec continue current diet. RD following.
--- NOTE | 2017-07-02 13:43 | NUR ---
LAYING DOWN IN BED WATCHING TV. IS VERY PLEASANT AND COOPERATIVE. KNOWS HOW TO MAKE NEEEDS KNOWN. MOD TO MIN ASST TO TRANSFER FROM BED TO W/C
--- NOTE | 2017-07-02 20:00 | NUR ---
PT IN BED WITH HOB UP FOR COMFORT. WATCHING TV. FSBS ACHS. NO O2. NO IV. MIN. ASSIST. WC. BED ALARM ON. BED IN LOWEST POSITION AND CALL LIGHT WITHIN REACH.
--- NOTE | 2017-07-02 20:01 | NUR ---
PT. IN BED WITH HOB UP FOR COMFORT WITH EYES CLOSED AND RESP. EVEN. CALL LIGHT WITHIN REACH.
[2017-07-02 20:34] VITALS: BP 119/51
--- NOTE | 2017-07-02 23:48 | NUR ---
PT STATES SHE IS FEELING NAUSEOUS. PT WANTED COLD RAG TO PUT ON HER AND I GAVE HER A DIET LEMON [employer] SODA AND CRACKERS AND TOLD HER TO TRY THAT TO SEE IF IT MADE HER FEEL BETTER. PT STATED "OH, THANK YOU SUGAR. IM SURE IT WILL."
--- NOTE | 2017-07-03 03:46 | NUR ---
ASSISTED PT TO BATHROOM AND BACK TO BED. CALL LIGHT IN REACH.
--- NOTE | 2017-07-03 08:19 | NUR ---
SITTING UP IN W/C IN ROOM FOR BREAKFAST. DENIES NEEEDS OR C/O. IS POLITE AND COOPERATIVE. PAIN CONTROLLED ON CURRENT MEDS
[2017-07-03 08:25] VITALS: BP 200/96
--- NOTE | 2017-07-03 17:58 | NUR ---
SITTING UP EATING SUPPER. DENIES NEEDS. BED IN LOWEST POSITION.
--- NOTE | 2017-07-03 19:16 | NUR ---
RECIEVED UP IN BED WITH EYES OPEN AND TV ON. REMAINS [place] AND WILL NOT WEAR HEARING DEVICE. PLEASANT AND COOPERATIVE. DENIES ANY PAIN. CALL LIGHT AND OVERBED TABLE IN REACH.
--- NOTE | 2017-07-03 20:16 | NUR ---
RESTING IN BED WITH EYES CLOSED. NO S/S OF DISTRESS OBSERVED. EASILY AROUSES WITH VERBAL STIMULI. REQUEST PAIN MEDICATION FOR BACK PAIN AT 8. MED GIVEN PER ORDERS. TAKES MEDICATION WITH OUT DIFFICULTY. CALL LIGHT AND OVERBED TABLE IN REACH.
[2017-07-03 21:45] VITALS: BP 118/57
--- NOTE | 2017-07-03 22:17 | NUR ---
RESTING IN BED WITH EYES CLOSSED. NO S/S OF DISTRESS OBSERVED. HOB ELEVATED. CALL LIGHT AND OVERBED TABLE IN REACH.
--- NOTE | 2017-07-04 00:32 | NUR ---
ASSISTED TO TOILET EARLIER. PLEASANT AND COOPERATIVE, NO S/S OF DISTRESS OBERVED. CALL LIGHT AND OVER BED TABLE IN REACH.
--- NOTE | 2017-07-04 03:59 | NUR ---
RESTING IN BED WITH EYES CLOSED. NO S/S OF DISTRESS OBSERVED. LAYING ON HER RIGHT SIDE WITH HOB ELEVATED. SLEEPS WITH TV ON. CALL LIGHTH AND OVER BED TABLE IN REACH,
--- NOTE | 2017-07-04 08:00 | NUR ---
SHIFT ASSMT COMPLETED.DENIES NEEDS.BREAKFAST GIVEN.CL IN REACH.
[2017-07-04 08:21] VITALS: BP 174/54
--- NOTE | 2017-07-04 12:00 | NUR ---
SITTING UP EATING.
--- NOTE | 2017-07-04 17:24 | NUR ---
CARE TEAM MEETING: PATIENT PROGRESSING WELL AND WILL DISCHARGE HOME IN AM. WILL CONTINUE TO FOLLOW WITH PATIENT AND WILL ASSIST WITH DISCHARGE NEEDS. WILL CALL ISI CHIU IN AM .
--- NOTE | 2017-07-04 19:13 | NUR ---
UP IN BED WITH EYES CLOSED. N O S/S OF DISTRESS OBSERVED. CALL LIGHT AND OVER BED TABLE IN REACH.
[2017-07-04 19:37] VITALS: BP 140/53
--- NOTE | 2017-07-04 20:33 | NUR ---
RESTING IN BED WITH EYES CLOSED. NO S/S OF DISTRESSOBSERVED, EASILY AROUSES TO VERBAL STIMULI. TAKES MEDS WITHOUT DIFFICULTY. DENIES ANY PAIN. CALL LIGHT AND OVERBED TABLE IN REACH.
--- NOTE | 2017-07-04 22:20 | NUR ---
RESTING IN BED WITH EYES CLOSED AT THIS TIME. NO S/S OF DISTRESS OBSERVED. CALL LIGHT AND OVERBED TABLE IN REACH.
[2017-07-05 07:53] VITALS: BP 154/59
--- NOTE | 2017-07-05 08:01 | NUR ---
RESTING QUIETLY IN BED. CALL LIGHT IN REACH. BED IN LOWEST POSITION.
[2017-07-05] MEDS ORDERED: LISINOPRIL10 MG PO (08:18)
[2017-07-05] MEDS ORDERED: HYDROCODONE-APA1 TAB PO (08:18)
--- NOTE | 2017-07-05 12:05 | NUR ---
SITTING UP IN BED WATCHING TV. HAS PACKED HER THINGS AND IS WAITING ON D/C. IS PLEASANT AND COOPERATIVE. STATES HER PAIN MEDS ARE EFFECTIVE IN COVERING PAIN.
--- NOTE | 2017-07-05 13:41 | NUR ---
PATIENT DISCHARGING HOME WITH FAMILY. [facility] WILL RESUME CARE OF PATIENT AT HOME. [facility] WILL DELIVER A WHEELCHAIR AND BEDSIDE COMMODE TO PATIENT HOME. DR. VENTURA 07/11/17. PATIENT CHOICE FORM FOR HOME HEALTH AND [facility] FORM SIGNED , EXPLAINED AND FILED IN CHART. ORDERS HAVE BEEN FAXED WITH CONFORMATION RECIEVED
--- NOTE | 2017-07-05 14:00 | NUR ---
D/C HOME WITH ALL PERSONAL BELONGINGS. SON CAME TO UNIT TO HER HER. WENT OVER D/C INSTRUCTIONS, MEDS, INSULIN, FOLLOW UP APPTS, DME WITH PT AND SON AGAIN. MADE SURE HE HAD AND UNDERSTOOD HARD SCRIPT FOR PT MEDS AND THE NEED TO TURN INTO PHARMACY. PT WAS SMILING AND HUGGED STAFF. LEFT FLOOR IN W/C. MEDS CALLED INTO [facility].
--- NOTE | 2017-07-31 10:49 | DS ---
PATIENT:DARIANA URIAS :38 MEDICAL RECORD: [id number] DISCHARGE SUMMARY ADMISSION DATE: 06/21/17 DISCHARGE DATE: 07/05/17 This is a discharge dated 07/05/2017 from inpatient rehab. PRIMARY DIAGNOSIS: Decreased functional ability and ability to provide activities of daily living secondary to an L1 compression fracture. SECONDARY DIAGNOSES: 1. Intractable back pain. 2. Diabetes. 3. Hypertension. 4. Hyperlipidemia. 5. Gout. 6. Anxiety/depression. HOSPITAL COURSE: Full H&P is located elsewhere on the chart on this 77-year-old female, who was admitted to inpatient rehab for physical therapy and occupational therapy to improve gait, transfer skills, bed mobility, and activities of daily living to a modified independent level. She was evaluated by PT and OT and their plans of care were followed. She required usp care for observation and assessment and medication administration. Fingerstick blood sugars were monitored throughout her hospital stay with appropriate adjustment in medications as needed. Electrolytes were managed by protocol. She remained on appropriate home medications and had narcotics for pain control. She was cooperative with therapies, progressing towards goals. Case management was involved for discharge planning. She did have to have adjustment of her lisinopril for better blood pressure control. She was considered stable for discharge on 07/05/2017. DISCHARGE MEDICATIONS: As per discharge medication reconciliation. DISCHARGE DISPOSITION: The patient is discharged home. She will continue her current diet and level of activity. She will follow up with primary care in 7-10 days and she will have home health for continued PT and OT. At least 30 minutes was spent on this discharge activity. TRANSINT:[id number] Voice Confirmation ID: [id number] DOCUMENT ID: [id number] Dictated By: REJI PEDRAZA I have interviewed/examined the above patient and agree with these documented findings. BINTA OLIVEIRA MD at 1400 at 1049 CC: [id number] DICTATION DATE: 07/29/171922 STUDENT ASSISTANCE COUNSELOR: 07/30/17 1127 DIS IN 07/05/17 [id number] [place] [address]
== END 2017-07-05 14:00 | disposition home health service (06) | DRG 544 ==
LOC: D.REHAB 19:55
PROVIDERS: ADMIT Emergency Medicine
DX: M48.56XA Collapsed vertebra, not elsewhere classified, lumbar region, initial encounter for fracture (principal); M54.89 Other dorsalgia; E11.9 Type 2 diabetes mellitus without complications; F41.8 Other specified anxiety disorders; E78.5 Hyperlipidemia, unspecified; M84.454A Pathological fracture, pelvis, initial encounter for fracture; M10.9 Gout, unspecified

== ENCOUNTER 2019-03-16 13:45 | Emergency (ER) | payer MEDICARE, OTHER ==
[~2019-03-16 13:45] MED LIST changes: +LISINOPRIL10 MG PO
[2019-03-16 13:54] VITALS: Ht 156.2 cm
[2019-03-16] MEDS ORDERED: ULTRAM50 MG PO (15:21)
[2019-03-16 15:45] VITALS: BP 188/85
== END 2019-03-16 15:45 | disposition home or self-care (01) ==
LOC: D.ER 13:45
DX: S92.902A Unspecified fracture of left foot, initial encounter for closed fracture (principal); W19.XXXA Unspecified fall, initial encounter; E11.9 Type 2 diabetes mellitus without complications

== ENCOUNTER 2019-08-07 10:21 | Emergency (ER) | payer MEDICARE, OTHER ==
[~2019-08-07] VITALS: Ht 156.2 cm; Wt 90.9 kg
[~2019-08-07 10:21] MED LIST changes: +ULTRAM50 MG PO
[2019-08-07 10:28] VITALS: Ht 156.2 cm; Wt 90.9 kg
[2019-08-07 13:04] VITALS: BP 179/81
== END 2019-08-07 13:06 | disposition home or self-care (01) ==
LOC: D.ER 10:21
DX: S05.42XA Penetrating wound of orbit with or without foreign body, left eye, initial encounter (principal); W19.XXXA Unspecified fall, initial encounter; Y93.9 Activity, unspecified; Y92.9 Unspecified place or not applicable; S51.812A Laceration without foreign body of left forearm, initial encounter; E11.9 Type 2 diabetes mellitus without complications; Z79.84 Long term (current) use of oral hypoglycemic drugs